=== PATIENT | female | born 1950 | race Caucasian/White ===

== ENCOUNTER 2018-06-20 14:26 | Emergency (ER) | payer MEDICARE ==
[~2018-06-20] VITALS: Ht 175.3 cm; Wt 59.0 kg
[~2018-06-20 14:26] MED LIST: CLARINEX5 MG PO; ESTRACE1 MG PO; ESTRADIOL1 MG PO; KETO DHEA PO; NAPROSYN375 MG PO; PATANASE NS; PROGESTERONE PO; ZOMIG5 M1 PO; [UNRECOGNIZED DRUG - OTHER] PO
--- OUTSIDE RECORDS SUMMARY | 2018-06-20 14:29 | XMS REPORT | Clinical Summary ---
Author Author [facility] Organization [facility] Address Unknown Phone Unavailable Care Team Providers Care Family Sociologist Name Role Phone Jack Casas MD PCP Allergies Comments Active Allergy Reactions Severity Noted Date Azelastine 09/04/2016 Erythromycin 09/04/2016 No Known Drug Allergies Sulfa (Sulfonamide 06/06/2016 Antibiotics) Tizanidine 09/04/2016 Medications End Date Status Medication Sig Dispensed Refills Start Date Active estradiol (ESTRACE) 1 MG Take 1 mg by 0 tablet mouth daily. Active PROGESTERONE VAGL Insert into 0 the vagina. Active UNABLE TO FIND T-3 SR 6.25 0 mg Active ZOLMitriptan (ZOMIG) 5 MG Take 5 mg by 0 tablet mouth once as needed for migraine. May repeat in 2 hours if unresolved. Do not exceed 10 mg in 24 hours. Active 7-oxodehydroepiandroste, 0 bulk, (7-KETO DHEA) powder Active desloratadine (CLARINEX) Take 5 mg by 0 5 mg tablet mouth daily. Active CEFTRIAXONE SODIUM Inject as 0 (ROCEPHIN INJ) directed. Active sodium,potassium,mag Use as 2 Bottle 0 sulfates (SUPREP BOWEL directed 8 PREP KIT) 17.5-3.13-1.6 gram recon soln Active Problems Problem Noted Date Osteopenia 10/14/2016 Migraine 10/14/2016 Primary fibromyalgia syndrome 10/14/2016 Internal hemorrhoids with complication 06/06/2016 Perianal dermatitis 06/06/2016 Constipation 06/06/2016 Encounters Care Team Description Date Type Specialty Earl Lim MD 02/18/2018 Telephone Gastroenterology Earl Lim MD 02/16/2018 Telephone Gastroenterology Earl Lim MD 02/11/2018 Telephone Gastroenterology Rosa Springer NP-C 01/20/2018 Orders Only General Surgery Rosa Springer NP-C Anal lesion (Primary Dx); Internal hemorrhoids without complication 01/12/2018 Office Visit General Surgery Rosa Springer NP-C Internal hemorrhoids with complication (Primary Dx) 12/22/2017 Office Visit General Surgery Earl Lim MD 08/11/2017 Telephone Gastroenterology after 06/19/2017 Family History Medical History Relation Name Comments Cancer Father Relation Name Status Comments Father Social History Date Tobacco Use Types Packs/Day Years Used Never Smoker Tobacco Cessation: Counseling Given: No Alcohol Use Drinks/Week oz/Week Comments Defer Sex Assigned at Date Recorded Not on file Industry Job Start Date Occupation Not on file Not on file Not on file Travel End Travel History Travel Start No recent travel history available. Last Filed Vital Signs Time Taken Vital Sign Reading 01/12/2018 11:00 AM [facility] Blood Pressure 134/67 01/12/2018 11:00 AM [employer] [employer] Pulse 88 - Temperature - - Respiratory Rate - - Oxygen Saturation - - Inhaled Oxygen - Concentration - Weight - - Height - - Body Mass Index - Plan of Treatment Health Maintenance Due Date Last Done Comments SHINGLES VACCINES (#1) 2000 65+ PNEUMOCOCCAL VACCINE 10/07/2015 (1 of 2 - PCV13) PNEUMOCOCCAL 10/07/2015 POLYSACCHARIDE VACCINE AGE 65 AND OVER BREAST CANCER SCREENING 09/04/2018 09/04/2016 INFLUENZA VACCINE 10/01/2018 COLON CANCER SCREENING 10/14/2026 10/14/2016 Procedures Comments Procedure Name Priority Date/Time Associated Diagnosis SURGICAL PATHOLOGY Routine 01/12/2018 REQUEST after 06/19/2017 Results * Surgical pathology request (01/12/2018) Specimen Tissue Narrative Performed At after 06/19/2017 Insurance Payer Benefit Subscriber ID Type Phone Address Plan / Group AETNA MEDICARE AETNA xxxxxxxx HMO MEDICARE HMO/PPO [facility] Advance Directives Patient has advance care planning documents on file. For more information, romi gregory contact: Hal Villalobos [address] [place] [address]
--- OUTSIDE RECORDS SUMMARY | 2018-06-20 14:29 | XMS REPORT | Continuity of Care Document ---
Author Author [facility] Organization [facility] Address Unknown Phone Unavailable Care Team Providers Care Heel Seat Pounder Name Role Phone Thiago Rosas MD, PP Unavailable Encounters Encounter Performer Location Date Lab Report [facility] Oct 17, 2011 Allergies, Adverse Reactions, Alerts Type Substance Reaction Status Drug allergy SULFA Active Environmental allergy SEASONAL ALLERGIES Active Problems Problem Effective Dates Problem Status ALLERGIC RHINITIS Sep 17, 2011 Active MIGRAINE HEADACHE Sep 17, 2011 Active TMJ SYNDROME Sep 17, 2011 Active FIBROMYALGIA Sep 17, 2011 Active OSTEOPENIA Sep 17, 2011 Active HRT Sep 17, 2011 Active DEGENERATIVE JOINT DISEASE, RIGHT HIP Inactive Procedures Date Description Comments Sep 16, 2011 genitourinary review of systems, E&M night time urination Sep 19, 2011 genitourinary review of systems, E&M night time urination Medications Medication Instructions Start Date Status ZOMIG TABS per other M.D. Sep 17, 2011 Active NAPROSYN TABS per other M.D. Sep 17, 2011 Active CLARITIN TABS per other M.D. Sep 17, 2011 Active BIOIDENTICAL PROGESTERONE per other M.D. Sep 17, 2011 Active THYROLAR-3 TABS per other M.D. Sep 17, 2011 Active DHEA CAPS per other M.D. Sep 17, 2011 Active ESTRACE TABS per other M.D. Sep 17, 2011 Active Vital Signs Date Description Test Result Sep 19, 2011 height E&M - 8302-2 HEIGHT 69.5 in Sep 19, 2011 weight E&M - 3141-9 WEIGHT 130 lb Sep 19, 2011 pulse rate E&M - 8867-4 PULSE RATE 76 /min Sep 19, 2011 blood pressure, systolic - 8480-6 BP SYSTOLIC 122 mm Hg Sep 19, 2011 blood pressure, diastolic - 8462-4 BP DIASTOLIC 81 mm Hg
--- OUTSIDE RECORDS SUMMARY | 2018-06-20 14:29 | XMS REPORT | Continuity of Care Document ---
Author Author Roico galeana Organization Interface Address Unknown Phone Unavailable Problems Problem Status Onset Date Classification Date Reported Comments Source M25.542 - PAIN IN JOINTS OF LEFT HAND Active 02/16/2018 KAYLEE Siegel M43.12 - "SPONDYLOLISTHESIS, CERVICAL RE Active 04/10/2015 KAYLEE Siegel CERVICAL STENOSIS Active 04/10/2015 [facility] UNKNOWN Active 04/10/2015 [facility] RT TOTAL HIP REPLACEMENT Active 10/22/2011 Condition 11/06/2011 [facility] DEGENERATIVE JOINT DISEASE RIGHT HIP Active 09/19/2011 [facility] ALLERGIC RHINITIS Active 09/17/2011 Condition 11/06/2011 [facility] MIGRAINE HEADACHE Active 09/17/2011 Condition 11/06/2011 [facility] TMJ SYNDROME Active 09/17/2011 Condition 11/06/2011 [facility] FIBROMYALGIA Active 09/17/2011 Condition 11/06/2011 [facility] OSTEOPENIA Active 09/17/2011 Condition 11/06/2011 [facility] HRT Active 09/17/2011 Condition 11/06/2011 [facility] DEGENERATIVE JOINT DISEASE, RIGHT HIP Inactive Condition 11/06/2011 [facility] PRIMARY LOC OSTEOARTHROSIS PELVIC REGION&THIGH Inactive Condition 11/06/2011 [facility] Cervical stenosis of spinal canal Active Problem 07/10/2017 KAYLEE Siegel, KAYLEE Galeana,[facility] Fibromyalgia Active Problem 07/10/2017 ALEX Siegel, KAYLEE Galeana,[facility] Herniated disc Resolved Problem 07/10/2017 ALEX Spann,[facility] Migraine Active Problem 07/10/2017 ALEX Spann,[facility] Mitral valve prolapse Resolved Problem 07/10/2017 ALEX Spann,[facility] Osteoarthritis Active Problem 07/10/2017 KAYLEE Siegel KAYLEE Galeana,[facility] Osteopenia Resolved Problem 07/10/2017 KAYLEE Siegel, KAYLEE Galeana,[facility] Pain Active Problem 07/10/2017 KAYLEE Siegel, KAYLEE Galeana,[facility] Temporomandibular joint disorder (<span ID="[id number]</span>) Resolved Problem 07/10/2017 KAYLEE Siegel, KAYLEE Galeana,[facility] TMJ (<span ID="[id number]">Confirmed</span>) Resolved Problem 07/10/2017 KAYLEE Siegel, KAYLEE Galeana,[facility] Depression Active Problem 11/10/2015 [facility] Final: Other spondylosis, cervical region 06/03/2015 [facility] Fibromyalgia Active Problem 10/27/2011 [facility] Migraine Active Problem 10/27/2011 [facility] Osteoarthritis Active Problem 10/27/2011 [facility] Pain Active Problem 10/27/2011 [facility] OSTEOARTHROS NOS-PELVIS Active [facility] OTHER SPONDYLOSIS, CERVICAL REGION Active [facility] Medications Medication Details Route Status Patient Instructions Ordering Provider Order Date Source docusate sodium 100 mg oral capsule 100 mg=1 cap, PO, Daily, PRN Constipation, # 20 cap, 0 Refill(s) Active 05/31/2015 [facility] ondansetron 4 mg oral tablet 4 mg=1 tab, PO, Q8H, PRN Nausea, X 14 day, # 42 tab, 0 Refill(s) Active 05/31/2015 [facility] methocarbamol 500 mg oral tablet 500 mg=1 tab, PO, QID, PRN Spasm, X 14 day, # 56 tab, 0 Refill(s) Active 05/31/2015 [facility] Dexamethasone 4 mg, 1 tab, Route: PO, Drug form: TAB, BID, Dosing Weight 55, kg, Start date: 05/30/15 21:00:00, Duration: 30 day, Stop date: 06/29/15 9:00:00Notes: (Same As: Decadron) No Longer Active 05/31/2015 [facility] Zomig 2.5 mg, 0.5 tab, Route: PO, Drug form: TAB, QAM, Start date: 05/30/15 7:00:00, Duration: 30 day, Stop date: 06/28/15 7:00:00Notes: Non-Formulary Drug. (Same As: Zomig) No Longer Active 05/30/2015 [facility] 7 Keto DHEA SR 10 mg capsule 7 Keto DHEA SR 10 mg capsule, 1 capsule, Drug form: MISC, Route: PO, QAM, 05/30/15 7:00:00, Duration: 30 day, Stop date: 06/28/15 7:00:00 No Longer Active 05/30/2015 [facility] Estrace 1 mg, 1 tab, Route: PO, Drug form: TAB, QAM, Start date: 05/30/15 7:00:00, Duration: 30 day, Stop date: 06/28/15 7:00:00 No Longer Active 05/30/2015 [facility] Zomig 1.25 mg, 0.25 tab, Route: PO, Drug form: TAB, Bedtime, Start date: 05/29/15 22:00:00, Duration: 30 day, Stop date: 06/27/15 22:00:00Notes: Non-Formulary Drug. (Same As: Zomig) No Longer Active 05/30/2015 [facility] Acetaminophen 325 MG / Hydrocodone Bitartrate 5 MG Oral Tablet [[place] 5/325] 1 tab, Route: PO, Drug Form: TAB, Dosing Weight 55, kg, Q6H, PRN Pain Score 1-3, Start date: 05/29/15 18:49:00, Duration: 30 day, Stop date: 06/28/15 18:48:00Notes: (Same as: [place] 325/5) No Longer Active 05/29/2015 [facility] Zofran 4 mg, 1 tab, Route: PO, Drug form: TAB, Q8H, Dosing Weight 55, kg, PRN Nausea, Start date: 05/29/15 18:49:00, Duration: 30 day, Stop date: 06/28/15 18:48:00Notes: (Same as: Zofran) No Longer Active 05/29/2015 [facility] Reglan 10 mg, 2 mL, Route: IVP, Drug form: INJ, Q6H, Dosing Weight 55, kg, PRN Nausea & Vomiting, Start date: 05/29/15 18:49:00, Duration: 30 day, Stop date: 06/28/15 18:48:00Notes: (Same as: Reglan) No Longer Active 05/29/2015 [facility] Progesterone SR 25mg capsule Progesterone SR 25mg capsule, 1 capsule, Drug form: MISC, Route: PO, BID, 05/29/15 17:00:00, Duration: 30 day, Stop date: 06/28/15 7:00:00 No Longer Active 05/29/2015 [facility] T3 SR 6.25 mcg capsule T3 SR 6.25 mcg capsule, 1 capsule, Drug form: MISC, Route: PO, BID, 05/29/15 17:00:00, Duration: 30 day, Stop date: 06/28/15 7:00:00 No Longer Active 05/29/2015 [facility] Progesterone SR 12.5mg capsule Progesterone SR 12.5mg capsule, 1 capsule, Drug form: MISC, Route: PO, TID, 05/29/15 17:00:00, Duration: 30 day, Stop date: 06/28/15 7:00:00 No Longer Active 05/29/2015 [facility] Famotidine 20 MG Oral Tablet 20 mg, 1 tab, Route: PO, Drug form: TAB, BID, Dosing Weight 55, kg, Start date: 05/29/15 17:00:00, Duration: 30 day, Stop date: 06/28/15 9:00:00Notes: (Same as: Pepcid) No Longer Active 05/29/2015 [facility] Estrace 0.5 mg, 0.5 tab, Route: PO, Drug form: TAB, QPM, Start date: 05/29/15 17:00:00, Duration: 30 day, Stop date: 06/27/15 17:00:00 No Longer Active 05/29/2015 [facility] ceFAZolin (SCIP) 1 gm, Route: IVPB, Drug form: PDR/INJ, Q8H, Dosing Weight 55, kg, Start date: 05/29/15 16:00:00, Duration: 24 hr, Stop date: 05/30/15 8:00:00Notes: (Same As: Geraldine Hernandez) MEDICATION WASTE * Product Size: 1000 mg Product Wasted: ___ mg No Longer Active 05/29/2015 [facility] Acetaminophen 325 MG / Hydrocodone Bitartrate 10 MG Oral Tablet [[place] 10/325] 1 tab, Route: PO, Drug Form: TAB, Dosing Weight 55, kg, Q4H, Start date: 05/29/15 12:00:00, Duration: 30 day, Stop date: 06/28/15 10:00:00Notes: Do not exceed 4gm/day of acetaminophen. (Same as: [place] 325/10) No Longer Active 05/29/2015 [facility] Dexamethasone 4 mg, 1 mL, Route: IVP, Drug form: INJ, Q6H, Dosing Weight 55, kg, Start date: 05/29/15 12:00:00, Duration: 30 day, Stop date: 06/28/15 6:00:00Notes: Concentration: 4mg/ml No Longer Active 05/29/2015 [facility] Tums 1,500 mg, 3 tab, Route: CHEW, Drug form: CHEWTAB, Q2H, Dosing Weight 55, kg, PRN Indigestion, Start date: 05/29/15 10:59:00, Duration: 30 day, Stop date: 06/28/15 10:58:00Notes: (Same As: Tums) Calcium Carbonate 500 [id number] mg elemental calcium Dose= mg calcium carbonate ( mg elemental calcium) No Longer Active 05/29/2015 [facility] Robaxin 500 mg, 1 tab, Route: PO, Drug form: TAB, QID, Dosing Weight 55, kg, PRN Spasm, Start date: 05/29/15 10:59:00, Duration: 30 day, Stop date: 06/28/15 10:58:00Notes: (Same as:Robaxin) No Longer Active 05/29/2015 [facility] NS 1,000 mL 1,000 mL, Rate: 75 ml/hr, Infuse over: 13.3 hr, Route: IV, Dosing Weight 55 kg, Total Volume: 1,000, Start date: 05/29/15 10:58:00, Duration: 30 day, Stop date: 06/28/15 10:57:00 No Longer Active 05/29/2015 [facility] Dilaudid 0.5 mg, 0.25 mL, Route: IV, Drug form: INJ, Q3H, Dosing Weight 55, kg, PRN Pain Score 7-10, Start date: 05/29/15 10:58:00, Duration: 30 day, Stop date: 06/28/15 10:57:00Notes: Same as: Dilaudid No Longer Active 05/29/2015 [facility] phenol 1 spray, Route: MUCOUS MEM, Daily, Drug form: SPRY, PRN Sore Throat, Start date: 05/29/15 10:58:00, Duration: 30 day, Stop date: 06/28/15 10:57:00Notes: Chloraseptic [place] (Same as: Chloraseptic, Sore Throat [place]) WASTE: F/P - Black; E - [employer] Trash Bin No Longer Active 05/29/2015 [facility] Benzocaine 15 MG / Menthol 3.6 MG Lozenge [Cepacol Sore Throat Pain Relief 15/3.6] 1 lozenge, Route: MUCOUS MEM, Drug Form: GERI, Dosing Weight 55, kg, Q2H, PRN Sore Throat, Start date: 05/29/15 10:58:00, Duration: 30 day, Stop date: 06/28/15 10:57:00Notes: Cepacol lozenges Dispense 1 box=16 lozenges (Same As: Cepacol Lozenges) No Longer Active 05/29/2015 [facility] Benadryl 25 mg, 0.5 mL, Route: IVP, Drug form: INJ, ONCE, Dosing Weight 55, kg, PRN Itching, Start date: 05/29/15 10:58:00Notes: (Same as: Benadryl) No Longer Active 05/29/2015 [facility] Naloxone 0.04 mg, 0.1 mL, Route: IVP, Drug form: INJ, Q2MIN, Dosing Weight 55, kg, PRN Narcotic Reversal, Start date: 05/29/15 10:03:00, Duration: 8 doses or times, Stop date: 05/30/15 0:00:00Notes: Same as Narcan Inactive 05/29/2015 [facility] Promethazine 6.25 mg, 0.25 mL, Route: IVPB, Drug form: INJ, ONCE, Dosing Weight 55, kg, PRN Nausea & Vomiting, Start date: 05/29/15 10:03:00Notes: Do not give IV push. (Same as: Phenergan) Inactive 05/29/2015 [facility] Ondansetron 4 mg, 2 mL, Route: IVP, Drug form: INJ, ONCE, Dosing Weight 55, kg, PRN Nausea & Vomiting, Start date: 05/29/15 10:03:00Notes: (Same as: Zofran) MEDICATION WASTE Product Size: 4 mg Product Wasted: ___ mg Inactive 05/29/2015 [facility] Flumazenil 0.2 mg, 2 mL, Route: IVP, Drug form: INJ, PRN, Dosing Weight 55, kg, PRN Benzodiazepine Reversal, Initial dose, Start date: 05/29/15 10:03:00, Duration: 30 day, Stop date: 06/28/15 10:02:00Notes: (Same as: Romazicon) Inactive 05/29/2015 [facility] Hydromorphone 0.5 mg, 0.25 mL, Route: IVP, Drug form: INJ, Q5Min, Dosing Weight 55, kg, PRN Pain Score 7-10, Start date: 05/29/15 10:03:00, Duration: 4 doses or times, Stop date: 05/30/15 0:00:00Notes: Same as: Dilaudid Inactive 05/29/2015 [facility] NS + KCL 20mEq/L 1000ml (Premix) 1,000 mL 1,000 mL, Rate: 70 ml/hr, Infuse over: 14.3 hr, Route: IV, Dosing Weight 57.273 kg, Total Volume: 1,000, Start date: 05/29/15 7:30:00, Duration: 1 doses or times, Stop date: 05/29/15 21:47:00Notes: PREMIX IV - Do Not Alter WASTE: F/P - Sink; E - [employer] Trash Bin Inactive 05/29/2015 [facility] ceFAZolin 2 gm, 100 mL, Route: IVPB, Drug form: INJ, PRE OP, Start date: 05/29/15 4:00:00, Duration: 1 doses or times, Stop date: 05/30/15 0:00:00Notes: Same as: Ancef Inactive 05/29/2015 [facility] desloratadine 5 MG Oral Tablet [Clarinex] 5 mg=1 tab, PO, PRN, # 30 tab, 0 Refill(s) Active 05/22/2015 [facility] Naprosyn 375 mg, 1 tab, Route: PO, Drug form: TAB, BID, kg, PRN Pain, Start date: 10/24/11 21:26:00, Duration: 30 day, Stop date: 11/23/11 21:25:00 PO No Longer Active Ralph 10/25/2011 [facility] tramadol 50 mg oral tablet 50 mg, 1 tab, Route: PO, Drug form: TAB, Q8H, PRN Pain Score 4-6, Start date: 10/24/11 18:50:00, Duration: 30 day, Stop date: 11/23/11 18:49:00 PO No Longer Active Ralph 10/24/2011 [facility] Zomig 5mg Tablet Zomig 5mg Tablet, 2.5 mg, 0.5 tab, Drug form: MISC, Route: PO, Daily, 10/23/11 7:00:00, Duration: 30 day, Stop date: 11/21/11 7:00:00 PO No Longer Active [place] 10/23/2011 [facility] Estrace 1mg Tablet Estrace 1mg Tablet, 1 mg, Drug form: MISC, Route: PO, Daily, 10/23/11 7:00:00, Duration: 30 day, Stop date: 11/21/11 7:00:00 PO No Longer Active [place] 10/23/2011 [facility] T3 (Liothyronine) SR 6.25microgram Capsule T3 (Liothyronine) SR 6.25microgram Capsule, 6.25microcram/1cap, Drug form: MISC, Route: PO, BID, 10/23/11 7:00:00, Duration: 30 day, Stop date: 11/21/11 17:00:00 PO No Longer Active Ralph 10/23/2011 [facility] DHEA (Dehydroepiandrosterone) 10mg Capsule DHEA (Dehydroepiandrosterone) 10mg Capsule, 10 mg, 1 cap, Drug form: MISC, Route: PO, Daily, 10/23/11 7:00:00, Duration: 30 day, Stop date: 11/21/11 7:00:00 PO No Longer Active Ralph 10/23/2011 [facility] Zomig 1.25mg Tablet Zomig 1.25mg Tablet, 1.25 mg, 0.25 tab, Drug form: MISC, Route: PO, Bedtime, 10/22/11 22:00:00, Duration: 30 day, Stop date: 11/20/11 22:00:00 PO No Longer Active [place] 10/23/2011 [facility] Lovenox 40 mg, 0.4 mL, Route: SUB-Q, Drug form: INJ, [id number], kg, Start date: 10/22/11 21:00:00, Duration: 30 day, Stop date: 11/20/11 21:00:00 SUB-Q No Longer Active [place] 10/23/2011 [facility] Progesterone SR 12.5mg Capsule Progesterone SR 12.5mg Capsule, 12.5 mg, 1 cap, Drug form: MISC, Route: PO, BID, 10/22/11 17:00:00, Duration: 30 day, Stop date: 11/21/11 7:00:00 PO No Longer Active [place] 10/22/2011 [facility] Progesterone SR 25mg Capsule Progesterone SR 25mg Capsule, 25 mg, 1 cap, Drug form: MISC, Route: PO, BID, 10/22/11 17:00:00, Duration: 30 day, Stop date: 11/21/11 7:00:00 PO No Longer Active [place] 10/22/2011 [facility] Estrace 1mg Tablet Estrace 1mg Tablet, 0.5 mg, 0.5 tab, Drug form: MISC, Route: PO, Q5PM, 10/22/11 17:00:00, Duration: 30 day, Stop date: 11/20/11 17:00:00 PO No Longer Active [place] 10/22/2011 [facility] cefazolin (SCIP) 1 gm, 50 mL, Route: IVPB, Drug form: INJ, ABXQ8H, kg, Start date: 10/22/11 10:00:00, Duration: 2 doses or times, Stop date: 10/22/11 18:00:00 IVPB No Longer Active Ralph 10/22/2011 [facility] enoxaparin 40 mg, Route: SUB-Q, Daily, Dosing Weight 61.932, kg, Start date: 10/22/11 9:00:00, Duration: 30 day, Stop date: 11/20/11 9:00:00 SUB-Q No Longer Active [place] 10/22/2011 [facility] cefazolin (SCIP) 1 gm, 50 mL, Route: IVPB, Drug form: INJ, ABXQ8H, kg, Start date: 10/22/11 8:00:00, Duration: 2 doses or times, Stop date: 10/22/11 16:00:00 IVPB No Longer Active [place] 10/22/2011 [facility] promethazine 12.5 mg, 1 supp, Route: KY, Drug form: SUPP, Q4H, kg, PRN Nausea & Vomiting, Start date: 10/22/11 7:19:00, Duration: 30 day, Stop date: 11/21/11 7:18:00 KY No Longer Active [place] 10/22/2011 [facility] morphine 1 mg/ml NURSE PRACTITIONER PER DIEM (30 mg/30 mL) INJ Syringe 30 mg 30 mg, 30 mL, Route: IV, Initial Loading Dose: 2 mg, NURSE PRACTITIONER PER DIEM Dose: 1 mg, NURSE PRACTITIONER PER DIEM Lockout: 10 minutes, Continuous Basal Rate: 0 mg, 4 Hour Limit (In MG): 30, Drug Form: INJ, Continuous, Pain, Start date: 10/22/11 7:19:00, Duration: 30 day, Stop date: 11/21/11... IV No Longer Active [place] 10/22/2011 [facility] naloxone 0.04 mg, 0.1 mL, Route: IVP, Drug form: INJ, Q2MIN, kg, PRN Narcotic Reversal, Start date: 10/22/11 7:19:00, Duration: 30 day, Stop date: 11/21/11 7:18:00 IVP No Longer Active [place] 10/22/2011 [facility] nalbuphine 2 mg, 0.2 mL, Route: IVP, Drug form: INJ, Q2H, kg, PRN Itching, Start date: 10/22/11 7:19:00, Duration: 5 doses or times, Stop date: Limited # of times IVP No Longer Active Ralph 10/22/2011 [facility] acetaminophen 650 mg, 2 tab, Route: PO, Drug form: TAB, Q4H, kg, PRN Pain/Fever, Start date: 10/22/11 7:19:00, Stop date: 11/21/11 7:18:00 PO No Longer Active Ralph 10/22/2011 [facility] Lactated Ringers IV 1,000 mL 1,000 mL, Rate: 90 ml/hr, Infuse over: 11.1 hr, Route: IV, Dosing Weight 61.932 kg, Total Volume: 1,000, Start date: 10/22/11 7:19:00, Duration: 30 day, Stop date: 11/21/11 7:18:00 IV No Longer Active [place] 10/22/2011 [facility] diphenhydrAMINE 25 mg, 1 tab, Route: PO, Drug form: TAB, Bedtime, kg, PRN Insomnia, Start date: 10/22/11 7:19:00, Duration: 30 day, Stop date: 11/21/11 7:18:00 PO No Longer Active Ralph 10/22/2011 [facility] docusate 100 mg, 1 cap, Route: PO, Drug form: CAP, BID, kg, PRN Constipation, Start date: 10/22/11 7:19:00, Duration: 30 day, Stop date: 11/21/11 7:18:00 PO No Longer Active Ralph 10/22/2011 [facility] acetaminophen-hydrocodone 325 mg-5 mg oral tablet 2 tab, Route: PO, Drug Form: TAB, kg, Q4H, PRN Pain Score 4-6, Start date: 10/22/11 7:19:00, Duration: 30 day, Stop date: 11/21/11 7:18:00 PO No Longer Active Ralph 10/22/2011 [facility] Milk of Magnesia 30 ml, Route: PO, Drug Form: SUSP, kg, BID, PRN Constipation, Start date: 10/22/11 7:19:00, Duration: 30 day, Stop date: 11/21/11 7:18:00 PO No Longer Active Ralph 10/22/2011 [facility] Lactated Ringers Injection IV 1,000 mL 1,000 mL, Rate: 100 ml/hr, Infuse over: 10 hr, Route: IV, Dosing Weight 61.932 kg, Total Volume: 1,000, Start date: 10/22/11 6:30:00, Duration: 30 day, Stop date: 11/21/11 6:29:00 IV No Longer Active [place] 10/22/2011 [facility] Sodium Chloride 0.9% IV 25 mL, Route: IV, Start date: 10/22/11 6:30:00, Duration: 30 day, Stop date: 11/21/11 6:29:00, PRN Line Flush IV No Longer Active [place] 10/22/2011 [facility] BD Normal Saline Flush 10 mL, Route: IV, Drug Form: INJ, PRN, PRN Line Flush, Start date: 10/22/11 6:30:00, Duration: 30 day, Stop date: 11/21/11 6:29:00 IV No Longer Active [place] 10/22/2011 [facility] cefazolin 1 gm, 50 mL, Route: IVPB, Drug form: INJ, PRE OP, Start date: 10/22/11 6:30:00, Duration: 12 hr, Stop date: 10/22/11 18:29:00 IVPB No Longer Active [place] 10/22/2011 [facility] ondansetron 4 mg, 2 mL, Route: IVP, Drug form: INJ, ONCE, kg, PRN Nausea & Vomiting, Start date: 10/22/11 6:09:00 IVP No Longer Active Fly 10/22/2011 [facility] hydromorphone 0.5 mg, 0.25 mL, Route: IVP, Drug form: INJ, Q5Min, kg, PRN Pain Score 4-6, Start date: 10/22/11 6:09:00, Duration: 5 doses or times, Stop date: Limited # of times IVP No Longer Active Maurice 10/22/2011 [facility] naloxone 0.04 mg, 0.1 mL, Route: IVP, Drug form: INJ, Q2MIN, kg, PRN Narcotic Reversal, Start date: 10/22/11 6:09:00, Duration: 8 doses or times, Stop date: Limited # of times IVP No Longer Active Maurice 10/22/2011 [facility] flumazenil 0.2 mg, 2 mL, Route: IVP, Drug form: INJ, PRN, kg, PRN Benzodiazepine Reversal, Initial dose, Start date: 10/22/11 6:09:00, Duration: 30 day, Stop date: 11/21/11 6:08:00 IVP No Longer Active Maurice 10/22/2011 [facility] meperidine 12.5 mg, 0.5 mL, Route: IVP, Drug form: INJ, Q30Min, kg, PRN Other -See Comment, For shivering, Start date: 10/22/11 6:09:00, Duration: 2 doses or times, Stop date: Limited # of times IVP No Longer Active Maurice 10/22/2011 [facility] morphine Sulfate 2 mg, 1 mL, Route: IVP, Drug form: INJ, Q5Min, kg, PRN Pain Score 4-6, Start date: 10/22/11 6:09:00, Duration: 8 doses or times, Stop date: Limited # of times IVP No Longer Active Maurice 10/22/2011 [facility] Lactated Ringers Injection IV 1,000 mL 1,000 mL, Rate: 25 ml/hr, Infuse over: 40 hr, Route: IV, Dosing Weight 61.932 kg, Total Volume: 1,000, Start date: 10/22/11 5:40:00, Duration: 30 day, Stop date: 11/21/11 5:39:00 IV No Longer Active [facility] 10[facility]2011 [facility] pro Infa Zyme -2 tabs every 1 hour as ne pro Infa Zyme -2 tabs every 1 hour as ne, Substitution Allowed Active 10/17/2011 [facility] lorgaplex; 2 tabs every 3 hrs when awake lorgaplex; 2 tabs every 3 hrs when awake, Substitution Allowed Active 10/17/2011 [facility] Unknown Home Medication Substitution Allowed, 2 tabs with meals2 tabs with meals Active 10/17/2011 [facility] B-Complex SR Daily, Substitution Allowed, Soft Stop Active 10/17/2011 [facility] livaplex,tid livaplex,tid, Substitution Allowed Active 10/17/2011 [facility] ciraplex, tid ciraplex, tid, Substitution Allowed Active 10/17/2011 [facility] T-probiotics 1 daily T-probiotics 1 daily, Substitution Allowed Active 10/17/2011 [facility] Black Current seed oil2 tabstid Black Current seed oil2 tabstid, Substitution Allowed Active 10/17/2011 [facility] Cholacol, 3 daily Cholacol, 3 daily, Substitution Allowed Active 10/17/2011 [facility] E-Manganese 1 tid E-Manganese 1 tid, Substitution Allowed Active 10/17/2011 [facility] min choudhary, 2 daily min choudhary, 2 daily, Substitution Allowed Active 10/17/2011 [facility] ligaplex 1 tid ligaplex 1 tid, Substitution Allowed Active 10/17/2011 [facility] betafood 4 tabs tid betafood 4 tabs tid, Substitution Allowed Active 10/17/2011 [facility] Vitamin D 1/2 tab tid, Substitution Allowed1/2 tab tid Active 10/17/2011 [facility] thymex-chew, 3 tid thymex-chew, 3 tid, Substitution Allowed Active 10/17/2011 [facility] osteo terrence 2 tabs tid osteo terrence 2 tabs tid, Substitution Allowed Active 10/17/2011 [facility] Unknown Home Medication Substitution Allowed Active 10/17/2011 [facility] oxzrcfbr-[id number]-6 tabs daily fnbprjqj-qebxhscphr-1 tabs daily, Substitution Allowed Active 10/17/2011 [facility] allerplex- 2 tabd tid allerplex- 2 tabd tid, Substitution Allowed Active 10/17/2011 [facility] Unknown Home Medication Substitution Allowed Active 10/17/2011 [facility] coral legend-supplement coral legend-supplement, Substitution Allowed Active 10/17/2011 [facility] zinc chelate supplement, tid zinc chelate supplement, tid, Substitution Allowed Active 10/17/2011 [facility] HCL supplement tid HCL supplement tid, Substitution Allowed Active 10/17/2011 [facility] calcium lactate TID, Substitution Allowed Active 10/17/2011 [facility] Cod Liver Oil 1 cap, Substitution Allowed, Soft Stop Active 10/17/2011 [facility] immaplex immaplex, TID, Substitution Allowed Active 10/17/2011 [facility] catalyn ,2 tabs tid catalyn ,2 tabs tid, Substitution Allowed Active 10/17/2011 [facility] Clarinex 5 mg oral tablet 5 mg, PO, Daily, prn, Substitution Allowedprn PO Active 10/17/2011 [facility] Zomig 5 mg oral tablet Daily, Substitution Allowed Active 10/17/2011 [facility] Estrace 1 mg oral tablet Daily, Substitution Allowed Active 10/17/2011 [facility] 7 keto dhea sr 10 mg daily 7 keto dhea sr 10 mg daily, Substitution Allowed Active 10/17/2011 [facility] T3 SR 6.25mcg T3 SR 6.25mcg, Daily, Substitution Allowed Active 10/17/2011 [facility] progesterone 12.5, Daily, Substitution Allowed Active 10/17/2011 [facility] progesterone 25 mg, Daily, Substitution Allowed Active 10/17/2011 [facility] NORCO 5-325 MG TABS 1-2 PO q 4-6 hours prn pain Active 09/20/2011 [facility] LOVENOX 40 MG/0.4ML SOLN INJECT 1 SYRINGE SQ QD FOR 7 DAYS Active 09/20/2011 [facility] ZOMIG TABS per other M.D. Active 09/17/2011 [facility] NAPROSYN TABS per other M.D. Active 09/17/2011 [facility] CLARITIN TABS per other M.D. Active 09/17/2011 [facility] BIOIDENTICAL PROGESTERONE per other M.D. Active 09/17/2011 [facility] THYROLAR-3 TABS per other M.D. Active 09/17/2011 [facility] DHEA CAPS per other M.D. Active 09/17/2011 [facility] ESTRACE TABS per other M.D. Active 09/17/2011 [facility] Allergies, Adverse Reactions, Alerts Substance Category Reaction Severity Reaction type Status Date Reported Comments Source SULFA Drug allergy SULFA 09/17/2011 [facility] SEASONAL ALLERGIES Environmental allergy SEASONAL ALLERGIES 09/17/2011 [facility] sulfa drugs drug allergy rash Allergy Active [facility] Immunizations Immunization Date Given Site Status Last Updated Comments Source Results Order Name Results Value Reference Range Date Interpretation Comments Source Hand 3 views DX Hand 3 views DX Exam: Hand 3 views DX, left Reason for Exam: - [id number] Pain in left hand joints Comparison Exam: None Discussion: No fractures or dislocations are seen of the left hand. The joint spaces are preserved. No intraosseous lesions. No radiopaque foreign bodies. Impression: 1. No acute bony abnormalities seen within the left hand. 02/16/2018 - - Read by: Gilbert House MD Dictated Date/time: 02/16/18 22:17 Electronically Signed by: Gilbert House MD 02/16/18 22:19 FINAL REPORT [facility] [place] Spine lumbar wo contrast MRI Spine lumbar wo contrast MRI EXAM: MRI LUMBAR SPINE WITHOUT CONTRAST DATE: 07/07/2017 10:23 AM CDT . ORDERING PHYSICIAN: Jack Casas MD CLINICAL INDICATION: M54.5 Low back pain - M54.5 Low back pain; TECHNIQUE: Multiplanar, multisequence MRI lumbar spine without IV contrast COMPARISON: Unavailable FINDINGS: For the purposes of enumeration, the lowest well formed intervertebral disc was counted as L5-S1 on this exam. INTRASPINAL CONTENTS/CONUS: The conus terminates at L1-L2. No definite dural based lesion. VERTEBRAE: The vertebrae are normal in height. There is leftward convex curvature. No focal suspicious bone marrow signal abnormality. PARASPINAL SOFT TISSUES: No edema or definite masses. No aortic aneurysm. DISC SPACES, SPINAL CANAL, AND NEURAL FORAMINA: T12-L1. Intervertebral disc height and signal are maintained. Posterior elements are normal. There is no stenosis. L1-L2. Intervertebral disc height and signal are maintained. Posterior elements are normal. There is no stenosis. L2-L3. Intervertebral disc height and signal are maintained. Posterior elements are normal. There is no stenosis. L3-L4. Intervertebral disc height and signal are maintained. Posterior elements are normal. There is no stenosis. L4-L5. Dehydrated disc with shallow diffuse disc bulge. There is bilateral facet hypertrophy with ligamentous redundancy. Central canal measures 10 mm with no cauda equina mass effect. There is mild lateral recess stenosis, right greater than left, with no compression of the descending L5 nerve root. Enlarged facets mildly narrow the neural foramina but cause no mass effect on the exiting L4 nerve roots. L5-S1. Loss of disc height and signal with circumferential disc osteophyte complex. There is mild facet hypertrophy with ligamentous redundancy. Central canal measures 10 mm. Lateral recesses are narrowed with osteophyte complex contacting the left descending S1 nerve root. Neural foramina are patent. IMPRESSION: 1. L4-5 and L5-S1 degenerative changes without narrowing of the central canal or mass effect on the cauda equina 2. L5-S1 left greater the right lateral recess narrowing with disc osteophyte complex contacting left descending S1 nerve root 3. Please see additional comment above 07/07/2017 - - Read by: Eugenio Mathews MD Dictated Date/time: 07/07/17 11:16 Electronically Signed by: Eugenio Mathews MD 07/07/17 13:06 FINAL REPORT [facility] Spine cervical wo contrast CT Spine cervical wo contrast CT CT cervical spine without contrast Comparison: 04/17/2015 MRI exam. Technique: Axial images were obtained without contrast. Sagittal and coronal MPR images were also submitted. The DLP is 920 mGy-cm. Findings: C3, C4, C5, C6 left laminectomy changes are present with left lamina plate and screw fixation. Right lamina surgical defects are also present with mild callus formation at the C3 and C6 levels. C1 and C2-C3 levels are normal. C3-C4 significant disc space narrowing with posterior disc osteophyte complex, bilateral foraminal osteophytes and uncovertebral joint arthrosis are again seen. Mild central canal stenosis, severe left foraminal stenosis, and moderate right foraminal stenosis are stable. C4-C5 approximately 1 mm grade 1 anterolisthesis is again seen. Left facet colectomy changes are present. Left foraminal osteophytes and UVJ arthrosis are present with moderate left foraminal stenosis. C5-C6 significant disc narrowing with small posterior osteophytes, UVJ arthrosis are present with moderate bilateral foraminal stenosis. No significant central canal stenosis identified. C6-C7 and C7-T1 levels are normal. Impression: 1. Multilevel postsurgical changes as above. 2. Stable cervical spine degenerative changes with several levels of moderate to severe foraminal stenosis. C4-C5 minimal grade 1 anterolisthesis. 11/07/2015 - - Read by: Wilner Duffy MD Dictated Date/time: 11/07/15 10:06 Electronically Signed by: Wilner Duffy MD 11/07/15 10:16 [facility] [place] [facility] cervical wo contrast MRI Spine cervical wo contrast MRI MRI CERVICAL SPINE WITHOUT CONTRAST TECHNIQUE: Multiplanar multisequence imaging of the cervical spine was performed without administration of intravenous gadolinium. COMPARISON: 11/02/2014 outside MRI exam. The prior report is not available. FINDINGS: The exam is limited by motion. Multilevel disc desiccation is seen. C2-C3: Unremarkable. C3-C4: Stable severe disc narrowing with 2.8 mm posterior disc osteophyte complex with mild central canal stenosis and mild cord indentation. There is severe left foraminal stenosis and mild right foraminal stenosis. C4-C5: Left asymmetric posterior disc osteophyte complex measuring 3 mm is seen with mild central canal stenosis and mild cord indentation, severe left foraminal stenosis. Mild right foraminal stenosis is present. C5-C6: Stable 3 mm posterior disc osteophyte complex with mild ligamenta flava redundancy with mild central canal stenosis and cord indentation. There is stable moderate to severe bilateral foraminal stenosis. C6-C7: Stable small posterior disc osteophyte complex. No significant central canal stenosis. There is stable moderate to severe left foraminal stenosis. C7-T1: Unremarkable. The cervical cord signal cannot be evaluated due to significant patient motion. IMPRESSION: 1. Stable multilevel degenerative changes since 11/02/2014. 2. Stable multilevel moderate to severe left foraminal stenosis and mild central canal stenosis with mild cord indentation. 04/17/2015 - - Read by: Wilner Duffy MD Dictated Date/time: 04/18/15 09:16 Electronically Signed by: Wilner Duffy MD 04/18/15 09:22 FINAL REPORT [facility] HEMATOLOGY Hgb 10.3 g/dL 12.0 - 16.0 10/25/2011 [facility] HEMATOLOGY Hct 29.8 % 36.0 - 48.0 10/25/2011 [facility] BLOOD BANK RESULTS Antibody Scrn Negative (10/24/2011 08:30:00) 10/24/2011 Normal [facility] BLOOD BANK RESULTS ABO/Rh B POS 10/24/2011 Unknown [facility] BLOOD BANK RESULTS RBC product Product available (10/24/2011 07:49:00) 10/24/2011 Normal [facility] HEMATOLOGY Hct 23.5 % 36.0 - 48.0 10/24/2011 [facility] HEMATOLOGY Hgb 7.9 g/dL 12.0 - 16.0 10/24/2011 [facility] HEMATOLOGY Hct 25.3 % 36.0 - 48.0 10/23/2011 [facility] HEMATOLOGY Hgb 8.7 g/dL 12.0 - 16.0 10/23/2011 [facility] BLOOD BANK RESULTS RBC product Product available (10/17/2011 12:17:00) 10/17/2011 Normal [facility] BLOOD BANK RESULTS ABO/Rh B POS 10/17/2011 Unknown [facility] BLOOD BANK RESULTS Antibody Scrn Negative (10/17/2011 12:17:00) 10/17/2011 Normal [facility] Vital Signs Vital Sign Value Date Comments Source Heart Rate 70 05/31/2015 [facility] Temperature Oral (F) 98.2 F 05/31/2015 [facility] Systolic (mm Hg) 158 05/31/2015 [facility] Diastolic (mm Hg) 79 05/31/2015 [facility] Respitory Rate 16 05/31/2015 [facility] Systolic (mm Hg) 140 05/31/2015 [facility] Diastolic (mm Hg) 69 05/31/2015 [facility] Systolic (mm Hg) 144 05/31/2015 [facility] Diastolic (mm Hg) 76 05/31/2015 [facility] Respitory Rate 17 05/31/2015 [facility] Temperature Oral (F) 97.9 F 05/31/2015 [facility] Heart Rate 73 05/31/2015 [facility] Temperature Oral (F) 97.9 F 05/31/2015 [facility] Heart Rate 74 05/31/2015 [facility] Respitory Rate 17 05/31/2015 [facility] BMI Calculated 17.91 05/29/2015 [facility] Weight 55 05/29/2015 [facility] Height 175.26 cm 05/29/2015 [facility] BMI Calculated 18.65 05/22/2015 [facility] Weight 57.273 05/22/2015 [facility] Height 175.26 cm 05/22/2015 [facility] Heart Rate 86 10/25/2011 [facility] Temperature Oral (F) 98.9 F 10/25/2011 [facility] Respitory Rate 18 10/25/2011 [facility] Systolic (mm Hg) 107 10/25/2011 [facility] Diastolic (mm Hg) 53 10/25/2011 [facility] Systolic (mm Hg) 102 10/25/2011 [facility] Diastolic (mm Hg) 53 10/25/2011 [facility] Respitory Rate 18 10/25/2011 [facility] Heart Rate 87 10/25/2011 [facility] Temperature Oral (F) 97.8 F 10/25/2011 [facility] Diastolic (mm Hg) 53 10/25/2011 [facility] Respitory Rate 18 10/25/2011 [facility] Heart Rate 85 10/25/2011 [facility] Systolic (mm Hg) 134 10/25/2011 [facility] Temperature Oral (F) 98.0 F 10/25/2011 [facility] Weight 61.932 10/17/2011 [facility] Height 177.80 cm 10/17/2011 [facility] Height 69.5 09/19/2011 [facility] Weight 130 09/19/2011 [facility] Heart Rate 76 09/19/2011 [facility] Systolic (mm Hg) 122 09/19/2011 [facility] Diastolic (mm Hg) 81 09/19/2011 [facility] Encounters Location Location Details Encounter Type Encounter Number Reason For Visit Attending Provider ADM Date DC Date Status Source [place] Office Visit [id number] Thiago Rice MD 09/19/2011 09/19/2011 [facility] Lab Report [id number] Thiago Rice MD 10/17/2011 10/17/2011 [facility] [id number] DEGENERATIVE JOINT DISEASE RIGHT HIP ALBERTO RICE 10/22/2011 10/25/2011 [facility] [id number] Thiago Rice MD 11/06/2011 11/06/2011 [facility] Outpatient [id number] EDWARDMELINA ALDRICH 03/30/2015 Active [facility] Outpatient [id number] EDWARDMELINA ALDRICH 04/10/2015 [facility] [place] [facility] [id number] Anant Aldrich 04/17/2015 04/18/2015 [facility] [place] Outpatient [id number] [facility] 04/20/2015 Active [facility] Inpatient [id number] [facility] 05/29/2015 05/31/2015 [facility] Outpatient [id number] [facility] 06/14/2015 Active [facility] Outpatient [id number] [facility] 07/12/2015 Active [facility] Outpatient [id number] [facility] 08/23/2015 [facility] Out[facility] [place] [facility] Di[facility] [id number] [facility] 08/23/2015 08/24/2015 [facility] [place] [facility] [place] [facility] [id number] Jack Casas 11/01/2015 11/02/2015 [facility] [place] [facility] [place] [facility] [id number] [facility] 11/07/2015 11/08/2015 [facility] [place] Outpatient [id number] [facility] 11/23/2015 Active [facility] Outpatient [id number] ANANT ALDRICH 07/15/2016 [facility] [place] [facility] [id number] Jack Casas 07/07/2017 07/08/2017 [facility] [place] Procedures Procedure Code Date Perfomer Comments Source Total replacement of right hip joint 682084797 10/22/2011 [facility] [place] Total replacement of right hip joint 299200738 10/22/2011 [facility] [place] Total replacement of right hip joint 243545351 10/22/2011 [facility] genitourinary review of systems, E&M 051885.9 09/19/2011 night time urination [facility] genitourinary review of systems, E&M 060699.9 09/16/2011 night time urination [facility] Excision of cyst of breast 44811822 01/11/2005 [facility] [place] Excision of cyst of breast 58988175 01/11/2005 [facility] [place] Excision of cyst of breast 23563243 01/11/2005 [facility] Hysterectomy [id number] 03/03/1994 [facility] [place] Hysterectomy [id number] 03/03/1994 [facility] Hysterectomy [id number] 03/03/1994 [facility] Manipulation of deviated nasal septum 47723045 03/03/1988 [facility] Manipulation of deviated nasal septum 87496290 03/03/1988 [facility] [place] Manipulation of deviated nasal septum 42602568 03/03/1988 [facility] Tonsillectomy [id number] 03/03/1955 [facility] Tonsillectomy [id number] 03/03/1955 [facility] [place] Tonsillectomy [id number] 03/03/1955 [facility]
--- OUTSIDE RECORDS SUMMARY | 2018-06-20 14:29 | XMS REPORT | Continuity of Care Document ---
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 Sep 17, 2011 Active NORCO 5-325 MG TABS 1-2 PO q 4-6 hours prn pain Sep 20, 2011 Active LOVENOX 40 MG/0.4ML SOLN INJECT 1 SYRINGE SQ QD FOR 7 DAYS Sep 20, 2011 Active Vital Signs Date Description Test [...]
--- OUTSIDE RECORDS SUMMARY | 2018-06-20 14:29 | XMS REPORT | Continuity of Care Document ---
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
--- OUTSIDE RECORDS SUMMARY | 2018-06-20 14:30 | XMS REPORT | Summary of Care ---
Author Author [facility] Organization [facility] Address Unknown Phone Unavailable Encounter LATRICAI Joshi(JERE) [id number] Date(s): 05/29/15 - 05/31/15 [facility] [address] [facility] provided by [facility] [employer] [facility] [place] [address]- Final: Other spondylosis, cervical region Discharge Disposition: Home Attending Physician: Kenneth Alcaraz MD Admitting Physician: Kenneth Alcaraz MD Referring Physician: Kenneth Alcaraz MD Vital Signs 1 2 3 Most recent to oldest [Reference Range]: 175.26 cm (05/29/15 7:14 AM) 175.26 cm (05/22/15 1:44 PM) Height 98.2 DegF (05/31/15 7:01 AM) 97.9 DegF (05/31/15 4:58 AM) 97.9 DegF (05/31/15 12:40 AM) Temperature Oral [96.4-99.1 DegF] 158/79 mmHg *HI* (05/31/15 7:01 AM) 140/69 mmHg (05/31/15 5:43 AM) 144/76 mmHg *HI* (05/31/15 5:16 AM) Blood Pressure [90-140/60-90 mmHg] 16 BRMIN (05/31/15 7:01 AM) 17 BRMIN (05/31/15 4:58 AM) 17 BRMIN (05/31/15 12:40 AM) Respiratory Rate [14-20 BRMIN] 70 bpm (05/31/15 7:01 AM) 73 bpm (05/31/15 4:58 AM) 74 bpm (05/31/15 12:40 AM) Peripheral Pulse Rate [60-100 bpm] 55 kg (05/29/15 7:14 AM) 57.273 kg (05/22/15 1:44 PM) Weight 17.91 m2 (05/29/15 7:14 AM) 18.65 m2 (05/22/15 1:44 PM) Body Mass Index Problem List Condition Effective Dates Status Health Status Informant Cervical stenosis of Active spinal canal(Confirmed) Depression(Confirmed Active ) Fibromyalgia(Confirm Active ed) Fibromyalgia(Confirm Resolved ed) Fibromyalgia(Confirm Active ed) Herniated Resolved disc(Confirmed) Migraine(Confirmed) Active Migraine(Confirmed) Active Mitral valve Resolved prolapse(Confirmed) Osteoarthritis(Confi Active rmed) Osteopenia(Confirmed Resolved ) Pain(Confirmed) Active 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 of Resolved temporomandibular joint)(Confirmed) Allergies, Adverse Reactions, Alerts Substance Reaction Severity Status sulfa drugs rash Active Medications 7 Keto DHEA SR 10 mg capsule 7 Keto DHEA SR 10 mg capsule, 1 capsule, Drug form: MISC, Route: PO, QAM, 7:00:00, Duration: 30 day, Stop date: 06/28/15 7:00:00 Start Date: 05/30/15 Stop Date: 05/31/15 Status: Discontinued Benadryl 25 mg, 0.5 mL, Route: IVP, Drug form: INJ, ONCE, Dosing Weight 55, kg, PRN Itchi ng, Start date: 05/29/15 10:58:00 Notes: (Same as: Benadryl) Start Date: 05/29/15 Stop Date: 05/31/15 Status: Discontinued ceFAZolin 2 gm, 100 mL, Route: IVPB, Drug form: INJ, PRE OP, Start date: 05/29/15 4:00:00, Duration: 1 doses or times, Stop date: 05/30/15 0:00:00 Notes: Same as: Ancef Start Date: 05/29/15 Stop Date: 05/29/15 Status: Completed ceFAZolin (SCIP) 1 gm, Route: IVPB, Drug form: PDR/INJ, Q8H, Dosing Weight 55, kg, Start date: 16:00:00, Duration: 24 hr, Stop date: 05/30/15 8:00:00 Notes: (Same As: Ancef, Kefzol) MEDICATION WASTE Product Size: 1000 mgP roduct Wasted: ___ mg Start Date: 05/29/15 Stop Date: 05/30/15 Status: Completed Cepacol Sore Throat 15 mg-3.6 mg mucous membrane lozenge 1 lozenge, Route: MUCOUS MEM, Drug Form: GERI, Dosing Weight 55, kg, Q2H, PRN Sor e Throat, Start date: 05/29/15 10:58:00, Duration: 30 day, Stop date: 06/28/15 1 0:57:00 Notes: Cepacol lozengesDispense 1 box=16 lozenges (Same As: Cepacol Lozenges) Start Date: 05/29/15 Stop Date: 05/31/15 Status: Discontinued Chloraseptic 1.4% spray 1 spray, Route: MUCOUS MEM, Daily, Drug form: SPRY, PRN Sore Throat, Start date: 05/29/15 10:58:00, Duration: 30 day, Stop date: 06/28/15 10:57:00 Notes: Chloraseptic [place](Same as: Chloraseptic, Sore Throat [place])WASTE: F/P - Black; E - Municipal Trash Bin Start Date: 05/29/15 Stop Date: 05/31/15 Status: Discontinued Clarinex 5 mg oral tablet 5 mg=1 tab, PO, PRN, # 30 tab, 0 Refill(s) Start Date: 05/22/15 Status: Ordered dexamethasone 4 mg, 1 tab, Route: PO, Drug form: TAB, BID, Dosing Weight 55, kg, Start date: 0 05/30/15 21:00:00, Duration: 30 day, Stop date: 06/29/15 9:00:00 Notes: (Same As: Decadron) Start Date: 05/30/15 Stop Date: 05/31/15 Status: Discontinued dexamethasone 4 mg, 1 mL, Route: IVP, Drug form: INJ, Q6H, Dosing Weight 55, kg, Start date: 0 05/29/15 12:00:00, Duration: 30 day, Stop date: 06/28/15 6:00:00 Notes: Concentration: 4mg/ml Start Date: 05/29/15 Stop Date: 05/30/15 Status: Discontinued Dilaudid 0.5 mg, 0.25 mL, Route: IV, Drug form: INJ, Q3H, Dosing Weight 55, kg, PRN Pain Score 7-10, Start date: 05/29/15 10:58:00, Duration: 30 day, Stop date: 06/28/15 10:57:00 Notes: Same as: Dilaudid Start Date: 05/29/15 Stop Date: 05/31/15 Status: Discontinued Dilaudid 0.5 mg, 0.25 mL, Route: IV, Drug form: INJ, Q3H, Dosing Weight 55, kg, PRN Pain Score 7-10, Start date: 05/29/15 10:58:00, Duration: 30 day, Stop date: 06/28/15 10:57:00 Notes: Same as: Dilaudid Start Date: 05/29/15 Stop Date: 05/29/15 Status: Discontinued docusate sodium 100 mg oral capsule 100 mg=1 cap, PO, Daily, PRN Constipation, # 20 cap, 0 Refill(s) Start Date: 05/31/15 Status: Ordered Estrace 1 mg, 1 tab, Route: PO, Drug form: TAB, QAM, Start date: 05/30/15 7:00:00, Durat ion: 30 day, Stop date: 06/28/15 7:00:00 Start Date: 05/30/15 Stop Date: 05/31/15 Status: Discontinued Estrace 0.5 mg, 0.5 tab, Route: PO, Drug form: TAB, QPM, Start date: 05/29/15 17:00:00, Duration: 30 day, Stop date: 06/27/15 17:00:00 Start Date: 05/29/15 Stop Date: 05/31/15 Status: Discontinued famotidine 20 mg oral tablet 20 mg, 1 tab, Route: PO, Drug form: TAB, BID, Dosing Weight 55, kg, Start date: 05/29/15 17:00:00, Duration: 30 day, Stop date: 06/28/15 9:00:00 Notes: (Same as: Pepcid) Start Date: 05/29/15 Stop Date: 05/31/15 Status: Discontinued flumazenil 0.2 mg, 2 mL, Route: IVP, Drug form: INJ, PRN, Dosing Weight 55, kg, PRN Benzodi azepine Reversal, Initial dose, Start date: 05/29/15 10:03:00, Duration: 30 day, Stop date: 06/28/15 10:02:00 Notes: (Same as: Romazicon) Start Date: 05/29/15 Stop Date: 05/29/15 Status: Discontinued hydromorphone 0.5 mg, 0.25 mL, Route: IVP, Drug form: INJ, Q5Min, Dosing Weight 55, kg, PRN Pa in Score 7-10, Start date: 05/29/15 10:03:00, Duration: 4 doses or times, Stop d ate: 05/30/15 0:00:00 Notes: Same as: Dilaudid Start Date: 05/29/15 Stop Date: 05/29/15 Status: Discontinued methocarbamol 500 mg oral tablet 500 mg=1 tab, PO, QID, PRN Spasm, X 14 day, # 56 tab, 0 Refill(s) Start Date: 05/31/15 Stop Date: 06/14/15 Status: Ordered naloxone 0.04 mg, 0.1 mL, Route: IVP, Drug form: INJ, Q2MIN, Dosing Weight 55, kg, PRN Na rcotic Reversal, Start date: 05/29/15 10:03:00, Duration: 8 doses or times, Stop date: 05/30/15 0:00:00 Notes: Same as Narcan Start Date: 05/29/15 Stop Date: 05/29/15 Status: Discontinued Forreston 10/325 oral tablet 1 tab, Route: PO, Drug Form: TAB, Dosing Weight 55, kg, Q4H, Start date: 6 12:00:00, Duration: 30 day, Stop date: 06/28/15 10:00:00 Notes: Do not exceed 4gm/day of acetaminophen. (Same as: Forreston 325/10) Start Date: 05/29/15 Stop Date: 05/31/15 Status: Discontinued Forreston 5/325 oral tablet 1 tab, Route: PO, Drug Form: TAB, Dosing Weight 55, kg, Q6H, PRN Pain Score 1-3, Start date: 05/29/15 18:49:00, Duration: 30 day, Stop date: 06/28/15 18:48:00 Notes: (Same as: Sisi 325/5) Start Date: 05/29/15 Stop Date: 05/31/15 Status: Discontinued NS + KCL 20mEq/L 1000ml (Premix) 1,000 mL 1,000 mL, Rate: 70 ml/hr, Infuse over: 14.3 hr, Route: IV, Dosing Weight 57.273 kg, Total Volume: 1,000, Start date: 05/29/15 7:30:00, Duration: 1 doses or time s, Stop date: 05/29/15 21:47:00 Notes: PREMIX IV - Do Not AlterWASTE: F/P - Sink; E - Municipal Trash Bin Start Date: 05/29/15 Stop Date: 05/29/15 Status: Completed NS 1,000 mL 1,000 mL, Rate: 75 ml/hr, Infuse over: 13.3 hr, Route: IV, Dosing Weight 55 kg, Total Volume: 1,000, Start date: 05/29/15 10:58:00, Duration: 30 day, Stop date: 06/28/15 10:57:00 Start Date: 05/29/15 Stop Date: 05/31/15 Status: Discontinued ondansetron 4 mg, 2 mL, Route: IVP, Drug form: INJ, ONCE, Dosing Weight 55, kg, PRN Nausea & Vomiting, Start date: 05/29/15 10:03:00 Notes: (Same as: Oscar) MEDICATION WASTE Product Size: 4 mgProduct Was colin: ___ mg Start Date: 05/29/15 Stop Date: 05/29/15 Status: Discontinued ondansetron 4 mg oral tablet 4 mg=1 tab, PO, Q8H, PRN Nausea, X 14 day, # 42 tab, 0 Refill(s) Start Date: 05/31/15 Stop Date: 06/14/15 Status: Ordered Progesterone SR 12.5mg capsule Progesterone SR 12.5mg capsule, 1 capsule, Drug form: MISC, Route: PO, TID, 05/02 10/16 17:00:00, Duration: 30 day, Stop date: 06/28/15 7:00:00 Start Date: 05/29/15 Stop Date: 05/31/15 Status: Discontinued Progesterone SR 25mg capsule Progesterone SR 25mg capsule, 1 capsule, Drug form: MISC, Route: PO, BID, 17:00:00, Duration: 30 day, Stop date: 06/28/15 7:00:00 Start Date: 05/29/15 Stop Date: 05/31/15 Status: Discontinued promethazine 6.25 mg, 0.25 mL, Route: IVPB, Drug form: INJ, ONCE, Dosing Weight 55, kg, PRN N ausea & Vomiting, Start date: 05/29/15 10:03:00 Notes: Do not give IV push. (Same as: Phenergan) Start Date: 05/29/15 Stop Date: 05/29/15 Status: Discontinued Reglan 10 mg, 2 mL, Route: IVP, Drug form: INJ, Q6H, Dosing Weight 55, kg, PRN Nausea & Vomiting, Start date: 05/29/15 18:49:00, Duration: 30 day, Stop date: 06/28/15 18:48:00 Notes: (Same as: Reglan) Start Date: 05/29/15 Stop Date: 05/31/15 Status: Discontinued Robaxin 500 mg, 1 tab, Route: PO, Drug form: TAB, QID, Dosing Weight 55, kg, PRN Spasm, Start date: 05/29/15 10:59:00, Duration: 30 day, Stop date: 06/28/15 10:58:00 Notes: (Same as:Robaxin) Start Date: 05/29/15 Stop Date: 05/31/15 Status: Discontinued T3 SR 6.25 mcg capsule T3 SR 6.25 mcg capsule, 1 capsule, Drug form: MISC, Route: PO, BID, 05/29/15 17: 00:00, Duration: 30 day, Stop date: 06/28/15 7:00:00 Start Date: 05/29/15 Stop Date: 05/31/15 Status: Discontinued Tums 1,500 mg, 3 tab, Route: CHEW, Drug form: CHEWTAB, Q2H, Dosing Weight 55, kg, PRN Indigestion, Start date: 05/29/15 10:59:00, Duration: 30 day, Stop date: 10:58:00 Notes: (Same As: Tums)Calcium Carbonate 500 vs=632 mg elemental calcium Dose=_ mg calcium carbonate ( mg elemental calcium) Start Date: 05/29/15 Stop Date: 05/31/15 Status: Discontinued Zofran 4 mg, 1 tab, Route: PO, Drug form: TAB, Q8H, Dosing Weight 55, kg, PRN Nausea, S tart date: 05/29/15 18:49:00, Duration: 30 day, Stop date: 06/28/15 18:48:00 Notes: (Same as: Zofran) Start Date: 05/29/15 Stop Date: 05/31/15 Status: Discontinued Zomig 2.5 mg, 0.5 tab, Route: PO, Drug form: TAB, QAM, Start date: 05/30/15 7:00:00, D uration: 30 day, Stop date: 06/28/15 7:00:00 Notes: Non-Formulary Drug. (Same As: Zomig) Start Date: 05/30/15 Stop Date: 05/31/15 Status: Discontinued Zomig 1.25 mg, 0.25 tab, Route: PO, Drug form: TAB, Bedtime, Start date: 05/29/15 22:0 0:00, Duration: 30 day, Stop date: 06/27/15 22:00:00 Notes: Non-Formulary Drug. (Same As: Zomig) Start Date: 05/29/15 Stop Date: 05/31/15 Status: Discontinued Results No data available for this section Immunizations No data available for this section Procedures Procedure Date Related Diagnosis Body Site Total replacement of right hip joint 10/22/11 Excision of cyst of breast 01/11/05 Hysterectomy 1994 Manipulation of deviated nasal septum 1988 Tonsillectomy 1955 Social History Social History Type Response Smoking Status Never smoker; Exposure to Tobacco Smoke None; Cigarette Smoking Last 365 Days No; Reg Smoking Cessation Counseling No Assessment and Plan No data available for this section
--- OUTSIDE RECORDS SUMMARY | 2018-06-20 14:30 | XMS REPORT | Summary of Care ---
Author Author [facility] [place] Organization [facility] [place] Address Unknown Phone Unavailable Encounter HQ Adi(FIN) [id number] Date(s): 07/07/17 - 07/07/17 [facility] [place] [address] [place] [phone] Discharge Disposition: Home or Self Care Attending Physician: Jack Casas MD Vital Signs No data available for this section Problem List Condition Effective Dates Status Health Status Informant Cervical stenosis of Active spinal canal(Confirmed) Fibromyalgia(Confirm Active ed) Fibromyalgia(Confirm Active ed) Fibromyalgia(Confirm Resolved ed) Herniated Resolved disc(Confirmed) Migraine(Confirmed) Active Migraine(Confirmed) Active Mitral valve Resolved prolapse(Confirmed) Osteoarthritis(Confi Active rmed) Osteopenia(Confirmed Resolved ) Pain(Confirmed) Active 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 of Resolved temporomandibular joint)(Confirmed) Allergies, Adverse Reactions, Alerts Substance Reaction Severity Status sulfa drugs rash Active Medications No data available for this section Results No data available for this section Immunizations No data available for this section Procedures Procedure Date Related Diagnosis Body Site Status 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
--- OUTSIDE RECORDS SUMMARY | 2018-06-20 14:30 | XMS REPORT | Summary of Care ---
Author Author [facility] [place] Organization [facility] Address Unknown Phone Unavailable Encounter HQ Adi(JERE) [id number] Date(s): 08/23/15 - 08/23/15 [facility] [address] [place] [phone] Discharge Disposition: Home Attending Physician: Kenneth Alcaraz MD Vital Signs No data available for [...]
--- OUTSIDE RECORDS SUMMARY | 2018-06-20 14:30 | XMS REPORT | Summary of Care ---
Author Author [facility] [place] Organization [facility] [place] Address Unknown Phone Unavailable Encounter LATRICIA Joshi(FIN) [id number] Date(s): 11/07/15 - 11/07/15 [facility] [place] [address] [place] [phone] Discharge Disposition: Home or Self Care Attending Physician: Kenneth Roman MD Vital Signs No data available for [...]
--- OUTSIDE RECORDS SUMMARY | 2018-06-20 14:30 | XMS REPORT | Summary of Care ---
Author Author [facility] [place] Organization [facility] [place] Address Unknown Phone Unavailable Encounter HQ Adi(FIN) [id number] Date(s): 04/17/15 - 04/17/15 [facility] [place] [address] [place], [place] [address] [phone] Discharge Disposition: Home Attending Physician: Perlita Santillan MD PHD Vital Signs No data available for this section Problem List Condition Effective Dates Status Health Status Informant Fibromyalgia(Confirm Active ed) Fibromyalgia(Confirm Resolved ed) Herniated Resolved disc(Confirmed) Migraine(Confirmed) Active Migraine(Confirmed) Resolved Mitral valve Resolved prolapse(Confirmed) Osteoarthritis(Confi Active rmed) Osteopenia(Confirmed Resolved ) Pain(Confirmed) Active Temporomandibular Resolved joint disorder (TMJ)(Confirmed) Allergies, Adverse Reactions, Alerts Substance Reaction Severity Status sulfa drugs rash Active Medications No data available for this section Results No data available for this section Immunizations No data available for this section Procedures Procedure Date Related Diagnosis Body Site 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
--- OUTSIDE RECORDS SUMMARY | 2018-06-20 14:30 | XMS REPORT | Summary of Care ---
Author Author [facility] [place] Organization [facility] [place] Address Unknown Phone Unavailable Encounter LATRICIA Joshi(FIN) [id number] Date(s): 11/01/15 - 11/01/15 [facility] [place] [address] [place] [phone] Discharge Disposition: Home or Self Care Attending [...]
--- OUTSIDE RECORDS SUMMARY | 2018-06-20 14:30 | XMS REPORT | CCD ---
Author Author Auto Generated Organization [facility] Address Unknown Phone Unavailable Care Team Providers Care Adjunct Nursing Faculty Name Role Phone Jonathan Rosas RP Allergies, Adverse Reactions, Alerts Substance Reaction Status sulfa drugs rash Active Problem List Condition Effective Dates Status Fibromyalgia Active Migraine Active Osteoarthritis Active Pain Active Medications Medication Instructions Start Date End Date Status betafood 4 tabs tid betafood 4 tabs tid, Substitution 10/17/2011 Ordered Allowed Vitamin D 1/2 tab tid, Substitution Allowed 10/17/2011 Ordered 1/2 tab tid B-Complex SR Daily, Substitution Allowed, Soft 10/17/2011 Ordered Stop Zomig 5mg Tablet Zomig 5mg Tablet, 2.5 mg, 0.5 tab, 10/23/2011 10/25/2011 Discontinued Drug form: MISC, Route: PO, Daily, 10/23/11 7:00:00, Duration: 30 day, Stop date: 11/21/11 7:00:00 promethazine 12.5 mg, 1 supp, Route: SD, Drug 10/22/2011 10/25/2011 Discontinued form: SUPP, Q4H, kg, PRN Nausea & Vomiting, Start date: 10/22/11 7:19:00, Duration: 30 day, Stop date: 11/21/11 7:18:00 promethazine 12.5 mg, 1 tab, Route: PO, Drug 10/22/2011 10/25/2011 Discontinued form: TAB, Q4H, kg, PRN Nausea & Vomiting, Start date: 10/22/11 7:19:00, Duration: 30 day, Stop date: 11/21/11 7:18:00 promethazine 12.5 mg, 0.5 mL, Route: IM, Drug 10/22/2011 10/25/2011 Discontinued form: INJ, Q4H, kg, PRN Nausea & Vomiting, Start date: 10/22/11 7:19:00, Duration: 30 day, Stop date: 11/21/11 7:18:00 morphine 1 mg/ml STABBER 30 mg, 30 mL, Route: IV, Initial 10/22/2011 10/24/2011 Discontinued (30 mg/30 mL) INJ Loading Dose: 2 mg, STABBER Dose: 1 Syringe 30 mg mg, STABBER Lockout: 10 minutes, Continuous Basal Rate: 0 mg, 4 Hour Limit (In MG): 30, Drug Form: INJ, Continuous, Pain, Start date: 10/22/11 7:19:00, Duration: 30 day, Stop date: 11/21/11... naloxone 0.04 mg, 0.1 mL, Route: IVP, Drug 10/22/2011 10/24/2011 Discontinued form: INJ, Q2MIN, kg, PRN Narcotic Reversal, Start date: 10/22/11 7:19:00, Duration: 30 day, Stop date: 11/21/11 7:18:00 nalbuphine 2 mg, 0.2 mL, Route: IVP, Drug 10/22/2011 10/25/2011 Discontinued form: INJ, Q2H, kg, PRN Itching, Start date: 10/22/11 7:19:00, Duration: 5 doses or times, Stop date: Limited # of times acetaminophen 650 mg, 2 tab, Route: PO, Drug 10/22/2011 10/25/2011 Discontinued form: TAB, Q4H, kg, PRN Pain/Fever, Start date: 10/22/11 7:19:00, Stop date: 11/21/11 7:18:00 cefazolin (SCIP) 1 gm, 50 mL, Route: IVPB, Drug 10/22/2011 10/22/2011 Discontinued form: INJ, ABXQ8H, kg, Start date: 10/22/11 8:00:00, Duration: 2 doses or times, Stop date: 10/22/11 16:00:00 Lactated Ringers IV 1,000 mL, Rate: 90 ml/hr, Infuse 10/22/2011 10/25/2011 Discontinued 1,000 mL over: 11.1 hr, Route: IV, Dosing Weight 61.932 kg, Total Volume: 1,000, Start date: 10/22/11 7:19:00, Duration: 30 day, Stop date: 11/21/11 7:18:00 diphenhydrAMINE 25 mg, 1 tab, Route: PO, Drug form: 10/22/2011 10/25/2011 Discontinued TAB, Bedtime, kg, PRN Insomnia, Start date: 10/22/11 7:19:00, Duration: 30 day, Stop date: 11/21/11 7:18:00 docusate 100 mg, 1 cap, Route: PO, Drug 10/22/2011 10/25/2011 Discontinued form: CAP, BID, kg, PRN Constipation, Start date: 10/22/11 7:19:00, Duration: 30 day, Stop date: 11/21/11 7:18:00 acetaminophen-hydroc 2 tab, Route: PO, Drug Form: TAB, 10/22/2011 10/25/2011 Discontinued odone 325 mg-5 mg kg, Q4H, PRN Pain Score 4-6, Start oral tablet date: 10/22/11 7:19:00, Duration: 30 day, Stop date: 11/21/11 7:18:00 acetaminophen-hydroc 1 tab, Route: PO, Drug Form: TAB, 10/22/2011 10/25/2011 Discontinued odone 325 mg-5 mg kg, Q4H, PRN Pain Score 1-3, Start oral tablet date: 10/22/11 7:19:00, Duration: 30 day, Stop date: 11/21/11 7:18:00 enoxaparin 40 mg, Route: SUB-Q, Daily, Dosing 10/22/2011 10/22/2011 Discontinued Weight 61.932, kg, Start date: 10/22/11 9:00:00, Duration: 30 day, Stop date: 11/20/11 9:00:00 Milk of Magnesia 30 ml, Route: PO, Drug Form: SUSP, 10/22/2011 10/25/2011 Discontinued kg, BID, PRN Constipation, Start date: 10/22/11 7:19:00, Duration: 30 day, Stop date: 11/21/11 7:18:00 diphenhydrAMINE 25 mg, 1 tab, Route: PO, Drug form: 10/22/2011 10/25/2011 Discontinued TAB, Q6H, kg, PRN Itching, Start date: 10/22/11 7:19:00, Duration: 30 day, Stop date: 11/21/11 7:18:00 thymex-chew, 3 tid thymex-chew, 3 tid, Substitution 10/17/2011 Ordered Allowed osteo terrence 2 tabs tid osteo terrence 2 tabs tid, Substitution 10/17/2011 Ordered Allowed livaplex,tid livaplex,tid, Substitution Allowed 10/17/2011 Ordered Estrace 1mg Tablet Estrace 1mg Tablet, 1 mg, Drug 10/23/2011 10/25/2011 Discontinued form: MISC, Route: PO, Daily, 10/23/11 7:00:00, Duration: 30 day, Stop date: 11/21/11 7:00:00 ciraplex, tid ciraplex, tid, Substitution Allowed 10/17/2011 Ordered T-probiotics 1 daily T-probiotics 1 daily, Substitution 10/17/2011 Ordered Allowed Naprosyn 375 mg, 1 tab, Route: PO, Drug 10/24/2011 10/25/2011 Discontinued form: TAB, BID, kg, PRN Pain, Start date: 10/24/11 21:26:00, Duration: 30 day, Stop date: 11/23/11 21:25:00 Black Current seed Black Current seed oil2 tabstid, 10/17/2011 Ordered oil2 tabstid Substitution Allowed Unknown Home Substitution Allowed 10/17/2011 Ordered Medication drenamin-supplement- [id number] tabs daily, 10/17/2011 Ordered 3 tabs daily Substitution Allowed allerplex- 2 tabd allerplex- 2 tabd tid, Substitution 10/17/2011 Ordered tid Allowed cefazolin (SCIP) 1 gm, 50 mL, Route: IVPB, Drug 10/22/2011 10/22/2011 Completed form: INJ, ABXQ8H, kg, Start date: 10/22/11 10:00:00, Duration: 2 doses or times, Stop date: 10/22/11 18:00:00 Unknown Home Substitution Allowed 10/17/2011 Ordered Medication coral coral legend-supplement, 10/17/2011 Ordered legend-supplement Substitution Allowed Lactated Ringers 1,000 mL, Rate: 100 ml/hr, Infuse 10/22/2011 10/22/2011 Discontinued Injection IV 1,000 over: 10 hr, Route: IV, Dosing mL Weight 61.932 kg, Total Volume: 1,000, Start date: 10/22/11 6:30:00, Duration: 30 day, Stop date: 11/21/11 6:29:00 Sodium Chloride 0.9% 25 mL, Route: IV, Start date: 10/22/2011 10/25/2011 Discontinued IV 10/22/11 6:30:00, Duration: 30 day, Stop date: 11/21/11 6:29:00, PRN Line Flush progesterone 12.5, Daily, Substitution Allowed 10/17/2011 Ordered progesterone 25 mg, Daily, Substitution Allowed 10/17/2011 Ordered zinc chelate zinc chelate supplement, tid, 10/17/2011 Ordered supplement, tid Substitution Allowed Zomig 1.25mg Tablet Zomig 1.25mg Tablet, 1.25 mg, 0.25 10/22/2011 10/25/2011 Discontinued tab, Drug form: MISC, Route: PO, Bedtime, 10/22/11 22:00:00, Duration: 30 day, Stop date: 11/20/11 22:00:00 Cholacol, 3 daily Cholacol, 3 daily, Substitution 10/17/2011 Ordered Allowed tramadol 50 mg oral 50 mg, 1 tab, Route: PO, Drug form: 10/24/2011 10/25/2011 Discontinued tablet TAB, Q8H, PRN Pain Score 4-6, Start date: 10/24/11 18:50:00, Duration: 30 day, Stop date: 11/23/11 18:49:00 BD Normal Saline 10 mL, Route: IV, Drug Form: INJ, 10/22/2011 10/25/2011 Discontinued Flush PRN, PRN Line Flush, Start date: 10/22/11 6:30:00, Duration: 30 day, Stop date: 11/21/11 6:29:00 Progesterone SR Progesterone SR 12.5mg Capsule, 10/22/2011 10/22/2011 Discontinued 12.5mg Capsule 12.5 mg, 1 cap, Drug form: MISC, Route: PO, BID, 10/22/11 17:00:00, Duration: 30 day, Stop date: 11/21/11 7:00:00 T3 (Liothyronine) SR T3 (Liothyronine) SR 6.25microgram 10/23/2011 10/25/2011 Discontinued 6.25microgram Capsule, 6.25microcram/1cap, Drug Capsule form: MISC, Route: PO, BID, 10/23/11 7:00:00, Duration: 30 day, Stop date: 11/21/11 17:00:00 HCL supplement tid HCL supplement tid, Substitution 10/17/2011 Ordered Allowed E-Manganese 1 tid E-Manganese 1 tid, Substitution 10/17/2011 Ordered Allowed min choudhary, 2 daily min choudhary, 2 daily, Substitution 10/17/2011 Ordered Allowed cefazolin 1 gm, 50 mL, Route: IVPB, Drug 10/22/2011 10/22/2011 Completed form: INJ, PRE OP, Start date: 10/22/11 6:30:00, Duration: 12 hr, Stop date: 10/22/11 18:29:00 ondansetron 4 mg, 2 mL, Route: IVP, Drug form: 10/22/2011 10/22/2011 Completed INJ, ONCE, kg, PRN Nausea & Vomiting, Start date: 10/22/11 6:09:00 hydromorphone 0.5 mg, 0.25 mL, Route: IVP, Drug 10/22/2011 10/22/2011 Discontinued form: INJ, Q5Min, kg, PRN Pain Score 4-6, Start date: 10/22/11 6:09:00, Duration: 5 doses or times, Stop date: Limited # of times naloxone 0.04 mg, 0.1 mL, Route: IVP, Drug 10/22/2011 10/22/2011 Discontinued form: INJ, Q2MIN, kg, PRN Narcotic Reversal, Start date: 10/22/11 6:09:00, Duration: 8 doses or times, Stop date: Limited # of times flumazenil 0.2 mg, 2 mL, Route: IVP, Drug 10/22/2011 10/22/2011 Discontinued form: INJ, PRN, kg, PRN Benzodiazepine Reversal, Initial dose, Start date: 10/22/11 6:09:00, Duration: 30 day, Stop date: 11/21/11 6:08:00 meperidine 12.5 mg, 0.5 mL, Route: IVP, Drug 10/22/2011 10/22/2011 Discontinued form: INJ, Q30Min, kg, PRN Other -See Comment, For shivering, Start date: 10/22/11 6:09:00, Duration: 2 doses or times, Stop date: Limited # of times morphine Sulfate 2 mg, 1 mL, Route: IVP, Drug form: 10/22/2011 10/22/2011 Discontinued INJ, Q5Min, kg, PRN Pain Score 4-6, Start date: 10/22/11 6:09:00, Duration: 8 doses or times, Stop date: Limited # of times calcium lactate TID, Substitution Allowed 10/17/2011 Ordered Progesterone SR Progesterone SR 12.5mg Capsule, 10/22/2011 10/25/2011 Discontinued 12.5mg Capsule 12.5 mg, 1 cap, Drug form: MISC, Route: PO, TID, 10/22/11 17:00:00, Duration: 30 day, Stop date: 11/21/11 7:00:00 Cod Liver Oil 1 cap, Substitution Allowed, Soft 10/17/2011 Ordered Stop immaplex immaplex, TID, Substitution Allowed 10/17/2011 Ordered Progesterone SR 25mg Progesterone SR 25mg Capsule, 25 10/22/2011 10/25/2011 Discontinued Capsule mg, 1 cap, Drug form: MISC, Route: PO, BID, 10/22/11 17:00:00, Duration: 30 day, Stop date: 11/21/11 7:00:00 DHEA DHEA (Dehydroepiandrosterone) 10mg 10/23/2011 10/25/2011 Discontinued (Dehydroepiandroster Capsule, 10 mg, 1 cap, Drug form: one) 10mg Capsule MISC, Route: PO, Daily, 10/23/11 7:00:00, Duration: 30 day, Stop date: 11/21/11 7:00:00 catalyn ,2 tabs tid catalyn ,2 tabs tid, Substitution 10/17/2011 Ordered Allowed Lactated Ringers 1,000 mL, Rate: 25 ml/hr, Infuse 10/22/2011 10/22/2011 Discontinued Injection IV 1,000 over: 40 hr, Route: IV, Dosing mL Weight 61.932 kg, Total Volume: 1,000, Start date: 10/22/11 5:40:00, Duration: 30 day, Stop date: 11/21/11 5:39:00 Clarinex 5 mg oral 5 mg, PO, Daily, prn, Substitution 10/17/2011 Ordered tablet Allowed prn Zomig 5 mg oral Daily, Substitution Allowed 10/17/2011 Ordered tablet Estrace 1 mg oral Daily, Substitution Allowed 10/17/2011 Ordered tablet 7 keto dhea sr 10 mg 7 keto dhea sr 10 mg daily, 10/17/2011 Ordered daily Substitution Allowed Estrace 1mg Tablet Estrace 1mg Tablet, 0.5 mg, 0.5 10/22/2011 10/25/2011 Discontinued tab, Drug form: MISC, Route: PO, Q5PM, 10/22/11 17:00:00, Duration: 30 day, Stop date: 11/20/11 17:00:00 pro Infa Zyme -2 pro Infa Zyme -2 tabs every 1 hour 10/17/2011 Ordered tabs every 1 hour as as ne, Substitution Allowed ne T3 SR 6.25mcg T3 SR 6.25mcg, Daily, Substitution 10/17/2011 Ordered Allowed Lovenox 40 mg, 0.4 mL, Route: SUB-Q, Drug 10/22/2011 10/25/2011 Discontinued form: INJ, [id number], kg, Start date: 10/22/11 21:00:00, Duration: 30 day, Stop date: 11/20/11 21:00:00 ligaplex 1 tid ligaplex 1 tid, Substitution 10/17/2011 Ordered Allowed lorgaplex; 2 tabs lorgaplex; 2 tabs every 3 hrs when 10/17/2011 Ordered every 3 hrs when awake, Substitution Allowed awake Unknown Home Substitution Allowed, 2 tabs with 10/17/2011 Ordered Medication meals 2 tabs with meals Vital Signs Most recent to oldest [Reference Range]: 1 2 3 Height 177.80 cm (10/17/2011 12:37:00) Temperature Oral [96.4-99.1 DegF] 98.9 DegF (10/25/2011 15:29:00) 97.8 DegF (10/25/2011 11:03:00) 98.0 DegF (10/25/2011 07:22:00) Systolic Blood Pressure [90-140 mmHg] 107 mmHg (10/25/2011 15:29:00) 102 mmHg (10/25/2011 11:03:00) 134 mmHg (10/25/2011 07:22:00) Diastolic Blood Pressure [60-90 mmHg] 53 mmHg *LOW* (10/25/2011 15:29:00) 53 mmHg *LOW* (10/25/2011 11:03:00) 53 mmHg *LOW* (10/25/2011 07:22:00) Respiratory Rate [14-20 BRMIN] 18 BRMIN (10/25/2011 15:29:00) 18 BRMIN (10/25/2011 11:03:00) 18 BRMIN (10/25/2011 07:22:00) Peripheral Pulse Rate [60-100 bpm] 86 bpm (10/25/2011 15:29:00) 87 bpm (10/25/2011 11:03:00) 85 bpm (10/25/2011 07:22:00) Weight 61.932 kg (10/17/2011 12:37:00) Results BLOOD BANK RESULTS Most recent to oldest [Reference Range]: 1 2 3 ABO/Rh B POS *Unknown* (10/24/2011 08:30:00) B POS *Unknown* (10/17/2011 12:17:00) Antibody Scrn Negative (10/24/2011 08:30:00) Negative (10/17/2011 12:17:00) RBC product Product available (10/24/2011 07:49:00) Product available (10/17/2011 12:17:00) HEMATOLOGY Most recent to oldest [Reference Range]: 1 2 3 Hgb [12.0-16.0 g/dL] 10.3 g/dL *LOW* (10/25/2011 04:15:00) 7.9 g/dL *LOW* (10/24/2011 04:30:00) 8.7 g/dL *LOW* (10/23/2011 05:00:00) Hct [36.0-48.0 %] 29.8 % *LOW* (10/25/2011 04:15:00) 23.5 % *LOW* (10/24/2011 04:30:00) 25.3 % *LOW* (10/23/2011 05:00:00)
[2018-06-20] MEDS ORDERED: OXYMETAZOLINE HCL 0.05% NAS 1 SPRAY BTL ONE (14:37)
[2018-06-20] MEDS ORDERED: OXYMETAZOLINE HCL 0.05% NAS 1 SPRAY BTL NR (15:00)
--- NOTE | 2018-06-20 15:03 | NUR ---
PATIENT BROUGHT BACK TO TRIAGE FOR EVALUATION. NO ACTIVE BLEEDING FOR LAST 15 MIN
== END 2018-06-20 15:06 | disposition home or self-care (01) ==
LOC: ER 14:26
DX: R04.0 Epistaxis (principal)
CPT/HCPCS: 99283